=== PATIENT | female | born 1965 | race Caucasian/White ===

== ENCOUNTER → 2023-09-28 | Outpatient (CLI) | payer OTHER ==
[~2023-09-28] MED LIST: ATOR40TA75 PO; BENA25CA4 PO; CEFD300CAP PO; FLOM0.4C39 PO; MELA10TA14 PO; NAPR500T6 PO; NITR4TASL SL; ZOLO100T PO
[2023-09-28 17:51] LABS: HEMATOCRIT 45.7 % (36.0-47.0); HEMOGLOBIN 14.9 g/dl (12.0-15.5); MEAN CORPUSCULAR HEMOGLOBIN 27.9 pg (27.0-33.0); MEAN CORPUSCULAR HGB CONC 32.6 g/dl (32.0-36.5); MEAN CORPUSCULAR VOLUME 85.6 fl (80.0-96.0); PLATELET COUNT, AUTOMATED 276 10^3/uL (150-450); RED BLOOD COUNT 5.34 10^6/uL (4.00-5.40); WHITE BLOOD COUNT 6.9 10^3/uL (4.0-10.0)
[2023-09-28 18:30] LABS: BLOOD UREA NITROGEN 20 MG/DL (9-23); CARBON DIOXIDE LEVEL 29 MMOL/L (20-31); CHLORIDE LEVEL 105 MMOL/L (98-107); CREATININE FOR GFR 0.81 MG/DL (0.55-1.30); GLOMERULAR FILTRATION RATE > 60.0 (>51); GLUCOSE, FASTING 86 MG/DL (60-100); POTASSIUM SERUM 4.1 MMOL/L (3.5-5.1); SODIUM LEVEL 139 MMOL/L (136-145)
== END ==
LOC: M LAB 16:53 → M RAD 16:53
PROVIDERS: ATTEND Urology
DX: Z01.818 Encounter for other preprocedural examination (principal); N20.0 Calculus of kidney

== ENCOUNTER → 2023-09-28 | Outpatient (REF) | payer OTHER ==
[~2023-09-28] MED LIST changes: +OXYB5TAB14 PO
[2023-09-29 11:19] LABS: APPEARANCE, URINE HAZY (CLEAR); BACTERIA, URINE AUTO 1+ (NEGATIVE); BILIRUBIN, URINE AUTO NEGATIVE (NEGATIVE); BLOOD, URINE BLOOD 1+ (NEGATIVE); COLOR, URINE YELLOW (YELLOW); GLUCOSE, URINE (UA) AUTO NEGATIVE (NEGATIVE); KETONE, URINE AUTO NEGATIVE (NEGATIVE); LEUKOCYTE ESTERASE, URINE AUTO 2+ (NEGATIVE); MUCUS, URINE SMALL (NEGATIVE); NITRITE, URINE AUTO NEGATIVE (NEGATIVE); PROTEIN, URINE AUTO 1+ mg/dL (NEGATIVE); RBC, URINE AUTO 16 /HPF (0-3); SPECIFIC GRAVITY URINE AUTO 1.013 (1.002-1.035); SQUAMOUS EPITHELIAL CELL UR AU 2 /HPF (0-6); UROBILINOGEN, URINE AUTO 0.2 mg/dL (0.0-2.0); WBC, URINE AUTO 83 /HPF (0-3)
== END ==
LOC: M LAB REF 16:22
PROVIDERS: ATTEND Urology
DX: Z01.818 Encounter for other preprocedural examination (principal); N20.0 Calculus of kidney; N39.0 Urinary tract infection, site not specified

== ENCOUNTER 2023-10-02 08:03 | Day surgery (SDC) | payer OTHER ==
[~2023-10-02] VITALS: Ht 162.6 cm; Wt 95.7 kg
[~2023-10-02 08:03] MED LIST changes: +LR 1,000 ML IV SCH; -OXYB5TAB14 PO
[2023-10-02] MEDS ORDERED: propofoL 200 MG/20 ML VIAL As Ordered ONE (09:12)
[2023-10-02] MEDS ORDERED: fentaNYL 100 MCG/2 ML INJECTION As Ordered ONE (09:12)
[2023-10-02] MEDS ORDERED: MIDAZOLAM INJ 2MG/2ML VIAL As Ordered ONE (09:12)
[2023-10-02] MEDS ORDERED: ONDANSETRON 4MG 2ML VIAL As Ordered ONE (09:12)
[2023-10-02] MEDS ORDERED: LIDOCAINE 2% 100MG/5ML SDV (FOR ANES.) As Ordered ONE (09:12)
[2023-10-02] MEDS: LevoFLOXacin IV 500 MG in IV 1 EA IV ONE (10:20)
[2023-10-02] MEDS: ISOVUE-300 61% 100ML VIAL As Ordered ONE (10:29)
[2023-10-02] MEDS ORDERED: fentaNYL 100 MCG/2 ML INJECTION IV PRN (11:00)
[2023-10-02] MEDS ORDERED: HYDROMORPHONE HCL 0.5 MG/ 0.5 ML SYRINGE IV PRN (11:00)
[2023-10-02] MEDS ORDERED: LR 1,000 ML IV SCH (11:00)
[2023-10-02] MEDS ORDERED: ONDANSETRON 4MG 2ML VIAL IV PRN (11:00)
[2023-10-02] MEDS ORDERED: OXYB5TAB14 PO (11:19)
[2023-10-02] MEDS: oxyCODONE 5MG TAB PO PRN (11:25)
[2023-10-02 12:00] VITALS: BP 139/99; TEMP 98; O2SAT 98
[2023-10-02] MEDS ORDERED: PERCOCET 5MG/325MG TAB PO PRN (12:00)
[2023-10-02] MEDS ORDERED: oxyBUTYnin 5 MG TAB PO PRN (12:00)
== END 2023-10-02 12:18 | disposition home or self-care (01) ==
LOC: M SDC 08:03
PROVIDERS: ATTEND Urology
DX: N13.2 Hydronephrosis with renal and ureteral calculous obstruction (principal); E78.00 Pure hypercholesterolemia, unspecified; K58.9 Irritable bowel syndrome, unspecified; M79.7 Fibromyalgia; G47.30 Sleep apnea, unspecified; Z79.899 Other long term (current) drug therapy; Z90.710 Acquired absence of both cervix and uterus; Z88.0 Allergy status to penicillin; Z88.8 Allergy status to other drugs, medicaments and biological substances; Z88.1 Allergy status to other antibiotic agents; Z88.2 Allergy status to sulfonamides
CPT/HCPCS: 52356; 76000; 82308; 82365; C1769; C2617; J1100; J1956; J2250; J2405; J3010; Q9967

== ENCOUNTER → 2024-05-02 | Outpatient (CLI) | payer OTHER ==
[~2024-05-02] MED LIST changes: -LR 1,000 ML IV SCH; +NAPR-1405 PO; -NAPR500T6 PO; +OXYB5TAB14 PO
[2024-05-02 16:10] LABS: APPEARANCE, URINE HAZY (CLEAR); BACTERIA, URINE AUTO 1+ (NEGATIVE); BILIRUBIN, URINE AUTO NEGATIVE (NEGATIVE); BLOOD, URINE BLOOD NEGATIVE (NEGATIVE); COLOR, URINE YELLOW (YELLOW); GLUCOSE, URINE (UA) AUTO NEGATIVE (NEGATIVE); KETONE, URINE AUTO NEGATIVE (NEGATIVE); LEUKOCYTE ESTERASE, URINE AUTO NEGATIVE (NEGATIVE); MUCUS, URINE SMALL (NEGATIVE); NITRITE, URINE AUTO NEGATIVE (NEGATIVE); PROTEIN, URINE AUTO NEGATIVE (NEGATIVE); RBC, URINE AUTO 1 /HPF (0-3); SPECIFIC GRAVITY URINE AUTO 1.021 (1.002-1.035); SQUAMOUS EPITHELIAL CELL UR AU 17 /HPF (0-6); UROBILINOGEN, URINE AUTO 0.2 mg/dL (0.0-2.0); WBC, URINE AUTO 3 /HPF (0-3)
== END ==
LOC: M PLAIMG 12:00
PROVIDERS: ATTEND Urology
DX: N20.0 Calculus of kidney (principal); R39.15 Urgency of urination

== ENCOUNTER → 2024-10-05 | Outpatient (REF) | LOC: M CFLAB 14:34 | DX: N39.0 Urinary tract infection, site not specified (principal) ==